=== PATIENT | male | born 1965 | race Hispanic/Latino ===

== ENCOUNTER 2019-06-09 06:45 | Day surgery (SDC) | payer BC ==
[2019-06-09] MEDS ORDERED: SODIUM CHLORIDE 0.9% 500 ML 500 ML IV SCH (08:00)
[2019-06-09 08:01] LABS: Basophils # (Auto) 0.1 K/mm3 (0.0-0.1); Basophils % (Auto) 0.8 % (0.0-1.8); Eosinophils # (Auto) 0.4 K/mm3 (0.0-0.4); Eosinophils % (Auto) 4.2 % (0.0-4.3); Hematocrit 42.2 % (35.5-45.6); Hemoglobin 14.1 gm/dl (11.8-15.2); Lymphocytes # (Auto) 2.5 K/mm3 (1.2-5.4); Lymphocytes % (Auto) 30.1 % (13.4-35.0); Mean Corpuscular HGB Conc 33 % (32-34); Mean Corpuscular Volume 79 fl (84-94); Monocytes % (Auto) 12.1 % (0.0-7.3); Platelet Count 230 K/mm3 (140-440); Red Blood Count 5.36 M/mm3 (3.65-5.03); Red Cell Distribution Width 14.7 % (13.2-15.2)
[2019-06-09 08:11] LABS: Partial Thromboplastin Time 30.5 Sec. (24.2-36.6)
[2019-06-09 08:12] LABS: Calcium 8.4 mg/dL (8.4-10.2)
[2019-06-09 08:14] LABS: INR 0.95 (0.87-1.13)
--- NOTE | 2019-06-09 08:40 | Short Stay Summary ---
Short Stay Documentation Date of service: 06/09/19 - History Principal diagnosis: Right hydronephrosis/nephrolithiasis Past Medical History: other (kidney stones) Social history: no significant social history, - Allergies and Medications Current Medications: Allergies No Known Allergies Allergy (Verified 06/09/19 07:33) Home Medications Medication Instructions Recorded Confirmed Last Taken Type Ketorolac [Toradol] 10 mg PO Q6H PRN 06/09/19 06/09/19 06/08/19 History 1 tab Potassium Chloride [K-Dur] 10 meq PO QDAY 06/09/19 06/09/19 06/08/19 History 1 tab allopurinoL [Zyloprim] 100 mg PO QDAY 06/09/19 06/09/19 06/08/19 History 1 tab Active Medications Sodium Chloride (Nacl 0.9% 500 Ml) 500 mls @ 50 mls/hr IV DIRECT DRAKE Last Admin: 06/09/19 08:15 Dose: 50 mls/hr Documented by: - Physical exam General appearance: no acute distress Integumentary: no rash, no growths HEENT: Atraumatic Lungs: Normal air movement Breasts: deferred Heart: Regular rate Male Genitourinary: deferred Rectal Exam: deferred Neurological: Normal gait, Normal speech - Brief post op/procedure progress note Date of procedure: 06/09/19 Pre-op diagnosis: Right hydronephrosis Post-op diagnosis: same Procedure: right neph tube Anesthesia: local Surgeon: MAUREEN STEVENSON Estimated blood loss: minimal Pathology: none Condition: stable - Disposition Condition at discharge: Good Disposition: DC-01 TO HOME OR SELFCARE Short Stay Discharge Plan Activity: advance as tolerated Weight Bearing Status: Weight Bear as Tolerated Diet: regular Wound: keep clean and dry, per your surgeon's advice Follow up with: DAWNA ARROYO MD [Primary Care Provider] - 7 Days
[2019-06-09] MEDS ORDERED: SODIUM CHLORIDE IRRI 500 ML 500 ML IR ONE (08:48)
[2019-06-09] MEDS: MIDAZOLAM 2 MG/2 ML INJ ONE ×2 (09:14→09:24)
[2019-06-09] MEDS: fentaNYL 100 MCG/2 ML INJ ONE ×2 (09:14→09:25)
[2019-06-09] MEDS: LIDOCAINE (2%) 20 MG/1 ML VIAL 20 ML MDV INFILTRATI ONE ×2 (09:19→09:21)
--- NOTE | 2019-06-09 10:07 | Operative Report ---
Operative Report Operative Report: Exam: Ultrasound and fluoroscopic guided placement of nephrostomy tube Clinical indication: Patient with a history of right hydronephrosis, right ureteral and renal stones Date: 06/09/2019 Procedure: Following an explanation of the risks, benefits and alternatives; written informed consent was obtained. The patient was brought to the antibiotics suite and placed in prone position on the examination table. Initial ultrasound evaluation of his right back and flank demonstrated minimal right hydronephrosis. Shadowing stones are present within the renal pelvis. The patient's right back and flank were prepped and draped in the usual sterile fashion. 1% lidocaine was used for anesthesia. Under ultrasound guidance, a posterior inferior calyx was cannulated with a 15 cm 21-gauge needle. A 0.035 guidewire was advanced into the ureter. The needle was removed an Accustick transition dilator advanced over the guidewire. Contrast was injected which demonstrates prompt opacification of the ureter, renal pelvis and calyces. A 0.035 guidewire was then advanced into the distal ureter. The transition dilator was removed. Following serial dilation over the guidewire under fluoroscopy, an 8 Danish nephrostomy tube was placed over the guidewire under fluoroscopy and coiled around the large stone within the renal pelvis. The guidewire and trocar were removed. Contrast was injected to document appropriate positioning of the pigtail. The catheter was securely fastened to the skin surface using 2-0 Ethilon suture and staple aches device. The catheter was in place to dependent drainage. Sterile dressings were then applied. The patient tolerated the procedure well. There were no immediate postprocedure consultations. Conscious sedation was performed under the guidance of radiologic nursing. Continuous cardiopulmonary monitoring was utilized. Impression: Ultrasound and fluoroscopic guided placement of an 8 Danish nephrostomy tube in the right renal pelvis. Nephrostogram demonstrating appropriate positioning of the pigtail and a large renal pelvic stone.
[2019-06-09 14:12] VITALS: BP 128/84
== END 2019-06-09 13:15 | disposition home or self-care (01) ==
LOC: CATHLABREC 06:45
PROVIDERS: ATTEND Radiology Diagnostic Radiology
DX: N13.2 Hydronephrosis with renal and ureteral calculous obstruction (principal); I10 Essential (primary) hypertension; Z98.890 Other specified postprocedural states; Z79.899 Other long term (current) drug therapy
CPT/HCPCS: 36415; 50432; 76937; 80048; 85025; 85610; 85730; C1729; C1769; J1956; J2250; J3010; J7040; Q9967

== ENCOUNTER 2019-06-14 12:44 | Outpatient (CLI) | payer BC ==
--- NOTE | 2019-06-14 14:35 | Cat Scan Report ---
CT ABDOMEN AND PELVIS WITHOUT CONTRAST INDICATION / CLINICAL INFORMATION: CALCULUS OF KIDNEY. TECHNIQUE: Axial CT images were obtained through the abdomen and pelvis without IV contrast. All CT scans at [facility] location are performed using CT dose reduction for ALARA by means of automated exposure control. COMPARISON: CT abdomen abdomen dated 06/07/2019 FINDINGS: LOWER CHEST: No significant abnormality. LIVER: No significant abnormality. GALLBLADDER: No significant abnormality. BILE DUCTS: No significant abnormality. PANCREAS: No significant abnormality. SPLEEN: No significant abnormality. ADRENALS: No significant abnormality. RIGHT KIDNEY and URETER: Comparison with previous exam, a percutaneous nephrostomy placed in the [facility] t. Again noted is a 2 x 0.7 cm stone right renal pelvis. Several punctate calcifications are present right collecting system Several calculi present in involving the distal ureter with one calculus pres ent at the uterovesical junction measuring 0.4 cm. LEFT KIDNEY and URETER: Punctate calcifications present lower pole left kidney. STOMACH and SMALL BOWEL: No significant abnormality. COLON: No significant abnormality. APPENDIX: No significant abnormality. PERITONEUM: No free fluid. No free air. No fluid collection. LYMPH NODES: No significant adenopathy. AORTA and ARTERIES: No significant abnormality. IVC and VEINS: No significant abnormality. URINARY BLADDER: No significant abnormality. REPRODUCTIVE ORGANS: No significant abnormality. ADDITIONAL FINDINGS: None. SKELETAL SYSTEM: No significant abnormality. IMPRESSION: 1. Distal migration of a small calculus now residing at the uterovesical junction on the right 2. Several calculi in the mid distal right ureter 3. Large calculus right renal pelvis 4. Percutaneous nephrostomy in place Signer Name: Garrett Vick MD Signed: 06/14/2019 2:30 PM Workstation Name: [id number]
--- NOTE | 2019-06-14 15:47 | Vascular Lab Report ---
DUPLEX DOPPLER LOWER EXTREMITY VEINS, LEFT INDICATION: EDEMA. TECHNIQUE: Duplex doppler imaging was performed through the veins of the left lower extremity using venous compr ession and other maneuvers. COMPARISON: None available. FINDINGS: Common Femoral vein: Negative. Superficial Femoral vein: Negative. Popliteal vein: Negative. Calf veins: Negative. Additional findings: None. IMPRESSION: 1. No sonographic evidence for DVT in the left lower extremity. Signer Name: Garrett Vick MD Signed: 06/14/2019 3:42 PM Workstation Name: [id number]
== END 2019-06-14 12:45 | disposition home or self-care (01) ==
LOC: CT 12:44
PROVIDERS: ATTEND Internal Medicine
DX: N20.2 Calculus of kidney with calculus of ureter (principal); R60.9 Edema, unspecified
CPT/HCPCS: 74176